=== PATIENT | male | born 1935 | race Two or more races ===

== ENCOUNTER 2017-04-22 16:32 | Inpatient (IN) | payer MEDICARE, OTHER ==
[~2017-04-22] VITALS: Ht 157.5 cm; Wt 123.1 kg
[~2017-04-22 16:32] MED LIST: AMIO200T2 PO; ASPI-535 PO; CLOP75TA27 PO; ERGO500014 PO; ISOS60TA PO; OLME1TAB35 PO; PATA; SIMV40TA3 PO
[2017-04-22] MEDS ORDERED: KETOROLAC 30 MG INJ IM STA (17:45)
--- NOTE | 2017-04-22 18:01 | ERD ---
ER Documentation Chief Complaint Date/Time DATE: 04/22/17 TIME: 17:57 Chief Complaint BILATERAL LEG SWELLING HPI 81-year-old man brought in by EMS from home for complaints of bilateral lower extremity swelling and bilateral knee pain. Patient has a long history of similar symptoms and did not use analgesics for today's pain. He was transported here without any complications. Patient states he has had bilateral lower extremity swelling in the past similar to this episode and uses furosemide daily. He has a history of CABG with a vein harvest from the right lower extremity. Patient denies shortness of breath or chest pain, no complaints of claudication, no headache or blurry vision, no vomiting or diarrhea. Patient denies redness or swelling at the knees and denies recent falls or trauma. ROS All systems reviewed and are negative except as per history of present illness. Medications Home Meds Reported Medications Fusxhjqwma-Glppkxxamz-BANY (Tribenzor) 40-10-12.5 Mg Tablet, 1 TAB PO DAILY, TAB 05/07/15 Olopatadine* (Patanol* Ophth) 0.1 % - 5 Ml Drops, 1 DROP, EA 05/07/15 Aspirin Ec (Aspir 81) 81 Mg Tablet.dr, 81 MG PO DAILY, TAB 05/07/15 Simvastatin (Simvastatin) 40 Mg Tablet, 40 MG PO HS, TAB 05/07/15 Amiodarone Hcl* (Amiodarone Hcl*) 200 Mg Tablet, 200 MG PO DAILY, TAB 05/07/15 Clopidogrel Bisulfate (Clopidogrel) 75 Mg Tablet, 75 MG PO DAILY, TAB 05/07/15 Isosorbide Mononitrate* (Isosorbide Mononitrate*) 60 Mg Tab.er.24h, 60 MG PO DAILY, TAB 05/07/15 Ergocalciferol* (Drisdol* (Vitamin D2)) 50,000 Unit Capsule, 57761 UNIT PO Q7D, CAP 05/07/15 Allergies Allergies: Coded Allergies: No Known Allergy (Verified , 06/12/15) PMhx/Soc Hypertension, CABG, CAD, obesity, peripheral edema, CHF, bilateral knee arthroplasty History of Surgery: Yes (pacer,CABG, both knee surg) Anesthesia Reaction: No Hx Neurological Disorder: Yes (SUDDEN WEAKNESS AT HOME) Hx Respiratory Disorders: No Hx Cardiac Disorders: No (HTN, CABG, CAD, PACER , AFIB) Hx Psychiatric Problems: No Hx Miscellaneous Medical Probl: Yes (EPITAXIS) Hx Alcohol Use: No Hx Substance Use: No Hx Tobacco Use: No FmHx Family History: No diabetes Physical Exam Vitals Vital Signs Date Time Temp Pulse Resp B/P Pulse Ox O2 Delivery O2 Flow Rate FiO2 04/22/17 19:41 98.3 65 18 142/82 96 Room Air 04/22/17 19:21 60 18 142/71 95 Room Air 04/22/17 16:34 98.1 87 18 150/75 95 Physical Exam GENERAL: Obese body habitus, appears dyspneic, appears nontoxic, afebrile HEENT: Moist mucous membranes, pink conjunctiva, no cervical spine tenderness or step-off deformities, no goiter, no jaundice or icterus, extraocular movements intact without pain. No submandibular induration, and no pharyngeal erythema NEURO: Alert and oriented 3, cranial nerves II through XII intact bilaterally, pupils equal round reactive to light, no focal deficits or facial asymmetry, sensation intact distally Strength 5/5 in upper and lower extremities bilaterally CARDIAC: Regular rate and rhythm, no murmurs rubs or gallops LUNGS: Bilateral crackles no wheezing or stridor ABDOMEN: Soft nontender, no guarding, no rigidity, no rebound, no psoas sign no obturator sign. Normoactive bowel sounds SKIN: Warm and dry to touch, no abrasions, contusions, or hematomas, no lacerations, no ecchymosis, no target lesions, and without ulcers EXTREMITIES: 3+ pitting edema in the lower extremities bilaterally, calves bilaterally symmetrical, no Homans sign, no popliteal cord sign PSYCH: Normal affect without agitation or irritability Result Diagram: 04/22/17192004/22/171920 Results 24 hrs Laboratory Tests Test 04/22/17 19:21 04/22/17 19:46 White Blood Count 14.410^3/ul Red Blood Count 4.7610^6/ul Hemoglobin 12.9g/dl Hematocrit 41.8% Mean Corpuscular Volume 87.8fl Mean Corpuscular Hemoglobin 27.1pg Mean Corpuscular Hemoglobin Concent 30.9g/dl Red Cell Distribution Width 16.3% Platelet Count 63900^3/UL Mean Platelet Volume 10.3fl Neutrophils % 75.1% Lymphocytes % 16.4% Monocytes % 6.7% Eosinophils % 1.0% Basophils % 0.2% Nucleated Red Blood Cells % 0.0/100WBC Neutrophils # 10.810^3/ul Lymphocytes # 2.410^3/ul Monocytes # 1.010^3/ul Eosinophils # 0.110^3/ul Basophils # 0.010^3/ul Nucleated Red Blood Cells # 0.010^3/ul Sodium Level 139mmol/L Potassium Level 4.5mmol/L Chloride Level 99mmol/L Carbon Dioxide Level 30mmol/L Anion Gap 15 Blood Urea Nitrogen 39mg/dl Creatinine 1.86mg/dl Glucose Level 94mg/dl Calcium Level 9.0mg/dl Total Bilirubin 0.3mg/dl Direct Bilirubin 0.00mg/dl Indirect Bilirubin 0.3mg/dl Aspartate Amino Transf (AST/SGOT) 20IU/L Alanine Aminotransferase (ALT/SGPT) 27IU/L Alkaline Phosphatase 90IU/L Troponin I 0.014ng/ml Total Protein 8.2g/dl Albumin 4.6g/dl Globulin 3.60g/dl Albumin/Globulin Ratio 1.27 Lipase 203U/L Blood Gas Specimen Source Blood arterial Arterial Blood Date Drawn 04/22/2017 7:57:31 PM Arterial Blood pH (Temp corrected) 7.436 Arterial Blood pCO2 (Temp correct) 45.2mmhg Arterial Blood pO2 (Temp corrected) 68.5mmHG Arterial Blood HCO3 29.7mmol/L Arterial Blood Base Excess 4.8mmol/L Arterial Blood Oxygen Saturation 93.2mmHG Neri Test ACCEPTAB Arterial Blood Gas Puncture Site Right Radial Arterial Blood Carboxyhemoglobin 0.1% Arterial Blood Methemoglobin 0.2% Blood Gas A-a O2 Differential 27.1mmHg Oxyhemoglobin Percent 92.9% Total Hemoglobin 13.7g/dl Blood Gas Temperature 37.0C Blood Gas Modality ROOM AIR FiO2 21.0% Blood Gas Notified Whom AA Blood Gas Notified Time 04/22/2017 8:10:18 PM Current Medications Medications (Trade) Dose Ordered Sig/Stephan Route PRN Reason Start Time Stop Time Status Last Admin Dose Admin Ketorolac Tromethamine (Toradol) 30 mg ONCE STAT IM 04/22/17 17:45 04/22/17 17:46 DC 04/22/17 19:32 Aspirin (Aspirin) 324 mg ONCE ONCE PO 04/22/17 19:00 04/22/17 19:01 DC 04/22/17 19:31 Furosemide (Lasix) 60 mg ONCE ONCE IV 04/22/17 19:00 04/22/17 19:01 DC 04/22/17 19:32 Nitroglycerin 1 tab 1 tab ONCE ONCE SL 04/22/17 19:00 04/22/17 19:01 DC 04/22/17 19:32 Levofloxacin/ Dextrose (Levaquin 750 Mg/ D5W 150 ml (Pmx)) 150 ml @ 100 mls/hr ONCE ONCE IVPB 04/22/17 20:30 04/22/17 21:59 Procedures/MDM Color Doppler ultrasound of the bilateral lower extremities was performed, all veins compressible, no DVT noted. One AP view of the chest performed, read by me reveals sternotomy wires, pacemaker in the right chest, florid pulmonary edema bilaterally worse on the left compared to the right. No acute infiltrates. I administered Toradol 30 mg intramuscular injection for pain control. Patient appears dyspneic and his oxygen saturation ranges between 89 and 94%. I placed him on low-flow oxygen and administered furosemide 60 mg IV 1, as well as aspirin 324 mg p.o. for cardioprotective measures. He also received nitroglycerin 0.4 mg sublingual 1. EKG performed, read by me revealed a normal sinus rhythm at 60 bpm with a first- degree atrial ventricular block at 222 ms, normal axis, narrow QRS complex, no concerning ST elevations or depressions noted. CBC reveals a leukocytosis of 14, electrolytes reveal kidney injury with a BUN/ creatinine of 39/1.9, liver function tests normal, troponin negative. ABG performed, read by me reveals a pH of 7.44, PCO2 45, PO2 70 on room air. Normal. Critical Care: Time: 37 minutes, this was time separate from other billable procedures. Treatments/Evaluations: Close monitoring and treatment of unstable vital signs, cardiorespiratory, and neurologic status, while maintaining tight balance of fluid, respiratory, and cardiac interventions. Patient admitted to telemetry setting for continued medical management and diuresis Departure Diagnosis: Primary Impression: Peripheral edema Additional Impressions: CHF (congestive heart failure) Congestive heart failure type: systolic Congestive heart failure chronicity: acute Qualified Code: I50.21 - Acute systolic congestive heart failure Acute kidney injury Condition: ILSA Hernandez MD Apr 22, 2017 18:00
[2017-04-22] MEDS ORDERED: ASPIRIN 81 MG TAB PO ONE (19:00)
[2017-04-22] MEDS ORDERED: FUROSEMIDE 40 MG INJ IV ONE (19:00)
[2017-04-22] MEDS ORDERED: NITROGLYCERIN (SL) 0.4 MG TAB SL ONE (19:00)
--- NOTE | 2017-04-22 19:28 | RADRPT ---
PROCEDURE: Portable chest x-ray. CLINICAL INDICATION: Cough. TECHNIQUE: Portable AP view of the chest. COMPARISON: 05/06/2015. FINDINGS: There is vascular congestion, not significantly changed. Increased hazy opacification is noted in th e left lower lung. The patient is status post median sternotomy. The cardiac silhouette is magnifie d. There is a right chest cardiac pacemaker. There are aortic calcifications. No definite pleural e ffusion is seen. There is no pneumothorax. IMPRESSION: 1. Vascular congestion, not significantly changed. 2. Increased hazy opacity in the left lower lung, possibly representing pneumonia or asymmetric pul monary edema. 3. Aortic atherosclerosis. 4. Cardiac pacemaker. RPTAT: HTAR .Lorne Gr MD, MD Date Time Electronically viewed and signed by .Lorne Gr MD, on 04/22/2017 19:27 .R/
[2017-04-22 19:45] LABS: BASOPHILS % 0.2 % (0.0-2.0); EOSINOPHILS # 0.1 10^3/ul (0.0-0.5); HEMATOCRIT 41.8 % (42.0-52.0); HEMOGLOBIN 12.9 g/dl (14.0-18.0); LYMPHOCYTES # 2.4 10^3/ul (0.8-2.9); LYMPHOCYTES % 16.4 % (15.0-51.0); MEAN CORPUSCULAR HEMOGLOBIN 27.1 pg (29.0-33.0); MEAN CORPUSCULAR HGB CONC 30.9 g/dl (32.0-37.0); MEAN CORPUSCULAR VOLUME 87.8 fl (82.0-101.0); MEAN PLATELET VOLUME 10.3 fl (7.4-10.4); MONOCYTES % 6.7 % (0.0-11.0); NEUTROPHIL # 10.8 10^3/ul (1.6-7.5); NEUTROPHILS % 75.1 % (39.0-77.0); PLATELET COUNT 255 10^3/UL (140-415); RED BLOOD COUNT 4.76 10^6/ul (4.70-6.10); RED CELL DISTRIBUTION WIDTH 16.3 % (11.5-14.5); WHITE BLOOD COUNT 14.4 10^3/ul (4.8-10.8)
[2017-04-22 19:58] LABS: ALBUMIN 4.6 g/dl (3.3-4.9); ALBUMIN/GLOBULIN RATIO 1.27; BILIRUBIN,INDIRECT 0.3 mg/dl (0-1.1); BILIRUBIN,TOTAL 0.3 mg/dl (0.2-1.3); CREATININE 1.86 mg/dl (0.61-1.24); POTASSIUM 4.5 mmol/L (3.5-5.1); TOTAL PROTEIN 8.2 g/dl (6.1-8.1)
[2017-04-22 20:10] LABS: TROPONIN-I 0.014 ng/ml (0.00-0.12)
[2017-04-22 20:10] LABS: AADO2 Arterial 27.1 mmHg (7.0-24.0); Allen Test ACCEPTAB; Arterial Base Excess 4.8 mmol/L (-3.0-3); Arterial COHb 0.1 % (0.0-3.0); Arterial Fraction of Oxyhgb 92.9 % (93.0-99.0); Arterial HCO3 29.7 mmol/L (22.0-26.0); Arterial MetHb 0.2 % (0.0-1.5); Arterial Total Hemglobin 13.7 g/dl (12.0-18.0); MODE ROOM AIR
[2017-04-22] MEDS ORDERED: LEVOFLOXACIN 750MG/D5W (PMX) 150 ML IVPB ONE (20:30)
[2017-04-22 21:15] VITALS: TEMP 98.3
[2017-04-22 21:50] VITALS: PULSE 63
[2017-04-22 21:55] VITALS: BP 130/58; RESP 20
[2017-04-22 22:10] VITALS: PULSE 60
[2017-04-22] MEDS ORDERED: KETOROLAC 15 MG INJ IV PRN (22:30)
[2017-04-22] MEDS: ACETAMINOPHEN 325 MG TAB PO PRN (22:51)
[2017-04-22] MEDS ORDERED: ONDANSETRON 4 MG INJ IV PRN (23:00)
[2017-04-22] MEDS ORDERED: ZOLPIDEM 5 MG TAB PO PRN (23:00)
[2017-04-22 23:15] VITALS: Ht 157.5 cm; Wt 123.1 kg
[2017-04-22] MEDS: ENOXAPARIN 30 MG/0.3 ML SYG SC SCH (23:30)
[2017-04-22] MEDS: CHOLECALCIFEROL XX SCH (23:45)
[2017-04-23] VITALS (12 sets, daily range): BP systolic 118–163; BP diastolic 49–78; PULSE 60–77; RESP 16–20
[2017-04-23] MEDS ORDERED: FUROSEMIDE 40 MG INJ IV SCH ×2 (06:00→18:00)
[2017-04-23 07:20] LABS: BASOPHILS % 0.4 % (0.0-2.0); EOSINOPHILS # 0.1 10^3/ul (0.0-0.5); EOSINOPHILS % 1.3 % (0.0-7.0); HEMOGLOBIN 12.9 g/dl (14.0-18.0); LYMPHOCYTES # 1.7 10^3/ul (0.8-2.9); LYMPHOCYTES % 16.6 % (15.0-51.0); MEAN CORPUSCULAR HEMOGLOBIN 27.3 pg (29.0-33.0); MEAN CORPUSCULAR HGB CONC 31.5 g/dl (32.0-37.0); MEAN CORPUSCULAR VOLUME 86.9 fl (82.0-101.0); MEAN PLATELET VOLUME 10.1 fl (7.4-10.4); MONOCYTE # 0.7 10^3/ul (0.3-0.9); MONOCYTES % 6.7 % (0.0-11.0); NEUTROPHIL # 7.7 10^3/ul (1.6-7.5); NEUTROPHILS % 74.2 % (39.0-77.0); PLATELET COUNT 233 10^3/UL (140-415); RED BLOOD COUNT 4.72 10^6/ul (4.70-6.10); RED CELL DISTRIBUTION WIDTH 15.9 % (11.5-14.5); WHITE BLOOD COUNT 10.3 10^3/ul (4.8-10.8)
[2017-04-23 07:42] LABS: ALBUMIN 4.1 g/dl (3.3-4.9); ALBUMIN/GLOBULIN RATIO 1.24; BILIRUBIN,INDIRECT 0.4 mg/dl (0-1.1); BILIRUBIN,TOTAL 0.4 mg/dl (0.2-1.3); CALCIUM 8.9 mg/dl (8.4-10.2); CREATININE 1.53 mg/dl (0.61-1.24); MAGNESIUM 2.2 mg/dl (1.7-2.5); PHOSPHORUS 4.5 mg/dl (2.5-4.9); POTASSIUM 3.9 mmol/L (3.5-5.1); TOTAL PROTEIN 7.4 g/dl (6.1-8.1)
[2017-04-23] MEDS: CHOLECALCIFEROL XX SCH (07:45)
[2017-04-23 07:50] LABS: TROPONIN-I 0.021 ng/ml (0.00-0.12)
[2017-04-23 07:51] LABS: CK-MB 2.99 ng/ml (0.0-2.4)
[2017-04-23] MEDS: ENOXAPARIN 30 MG/0.3 ML SYG SC SCH (08:45)
[2017-04-23] MEDS ORDERED: AMIODARONE 200 MG TAB PO SCH (09:00)
[2017-04-23] MEDS ORDERED: ISOSORBIDE MONONITRATE(SR)60 MG TAB PO SCH (09:00)
[2017-04-23] MEDS ORDERED: AMLODIPINE 5 MG TAB PO SCH (09:00)
[2017-04-23] MEDS ORDERED: ASPIRIN (EC) 81 MG TAB PO SCH (09:00)
[2017-04-23] MEDS ORDERED: LOSARTAN 25 MG TAB PO SCH (09:00)
[2017-04-23] MEDS ORDERED: CLOPIDOGREL 75 MG TAB PO SCH (09:00)
[2017-04-23] MEDS: ACETAMINOPHEN 325 MG TAB PO PRN (10:06)
--- NOTE | 2017-04-23 11:10 | HP ---
Date/Time of Note Date/Time of Note DATE: 04/23/17 TIME: 10:41 Assessment/Plan VTE Prophylaxis VTE Prophylaxis Intervention: LMWH Lines/Catheters IV [facility]from [facility] Saline Lock Urinary Cath still in place: Yes Reason Cath still needed: other (indicate) (Monitor urine output, to be discontinued today) Assessment/Plan Assessment/Plan 81-year-old male with; 1. CHF exacerbation, per previous echocardiogram diastolic dysfunction mainly, repeat echocardiogram pending. Cardiac enzymes negative. EKG stable. Patient diuresed well with Lasix overnight. He will be discharged later this afternoon on Lasix 40 mg daily on top of his other medications. He also may benefit from Aldactone if his blood pressure tolerates. D/C Josue catheter Patient ambulating with walker on room air and stable. 2. Coronary artery disease, status post bypass surgery, continue current medications 3. Hypertension: Blood pressure stable on current medications. 4. Morbid obesity: Lifestyle modification 5. Chronic knee pain: Status post knee replacement, Tylenol as needed. 6. Lower extremity edema, right greater than left, Dopplers of the lower extremity negative, diuresis. His right lower extremity seems to be the area where the graft was taken for his CABG and therefore likely has some venous insufficiency and lymphedema chronically. 7. Hyperlipidemia: Continue statin therapy 8. Likely chronic kidney disease, renal function better, diuresis outpatient. Prophylaxis: Lovenox for DVT prophylaxis, patient tolerating p.o. well Disposition: Echocardiogram pending this morning, discharge planning later this afternoon. 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 Echocardiogram is pending this morning, patient diuresed really well with multiple doses of IV Lasix, Josue catheter will be discontinued. He wants to go home today therefore he will be given an additional dose of Lasix later today and discharged on oral Lasix daily for better compliance. Reviewing his medication 1 of his BP medication does contain hydrochlorothiazide in small dose likely not enough for him to diuresis. Patient feels much better and at baseline this morning. He is ambulating with his walker. ROS Constitutional: no complaints Respiratory: no complaints Cardiovascular: no complaints Gastrointestinal: no complaints Genitourinary: no complaints Musculoskeletal: no complaints, swelling (Lower extremity LLE>RLE) Neurologic: no complaints PMH/Family/Social Past Medical History Hypertension Coronary artery disease status post bypass surgery Likely sick sinus syndrome status post permanent pacemaker Morbid obesity Chronic knee pain Chronic lower extremity edema Hyperlipidemia Past Surgical History Status post knee replacements remotely Status post coronary artery bypass surgery Status post pacemaker placement Social History Alcohol Use: none Smoking Status: Never smoker Drug Use: none Exam/Review of Systems Vital Signs Vitals Vital Signs Date Time Temp Pulse Resp B/P Pulse Ox O2 Delivery O2 Flow Rate FiO2 04/23/17 08:09 60 04/23/17 07:47 98.2 18 163/74 93 04/22/17 21:15 Room Air Intake and Output 04/22/17 04/22/17 04/23/17 15:00 23:00 07:00 Intake Total 300 ml Output Total 1600 ml Balance -1300 ml Exam Constitutional: alert, oriented, other (Morbidly obese) Respiratory: diminished breath sounds (At bases bilaterally, unchanged more related to he is a significant obesity), normal air movement Cardiovascular: nl pulses, regular rate and rhythm Gastrointestinal: non-tender, other (Obese with significant pannus), soft Musculoskeletal: nl extremities to inspection Extremities: normal pulses 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 Current Medications Acetaminophen (Tylenol Tab) 650 mg Q6H PRN PO PAIN AND OR ELEVATED TEMP Last administered on 04/23/17 10:06; Admin Dose 650 MG; Start 04/22/17 at 22:30 Furosemide (Lasix) 40 mg Q8 IV Last administered on 04/23/17 05:39; Admin Dose 40 MG; Start 04/23/17 at 06:00 Ketorolac Tromethamine (Toradol) 15 mg Q8 PRN IV PAIN; Start 04/22/17 at 22:30 ; Stop 04/24/17 at 22:29 Ondansetron HCl (Zofran Inj) 4 mg Q6H PRN IV NAUSEA AND/OR VOMITING; Start at 23:00 Zolpidem Tartrate (Ambien) 5 mg HS PRN PO INSOMNIA Last administered on 23:23; Admin Dose 5 MG; Start 04/22/17 at 23:00 Enoxaparin Sodium (Lovenox) 30 mg DAILY SC Last administered on 04/23/17 08:45 ; Admin Dose 30 MG; Start 04/22/17 at 23:30 Amlodipine Besylate (Norvasc) 5 mg DAILY PO Last administered on 04/23/17 08: 48; Admin Dose 5 MG; Start 04/23/17 at 09:00 Losartan Potassium (Cozaar) 25 mg BID PO Last administered on 04/23/17 08:47; Admin Dose 25 MG; Start 04/23/17 at 09:00 Amiodarone HCl (Cordarone) 200 mg DAILY PO Last administered on 04/23/17 08:47 ; Admin Dose 200 MG; Start 04/23/17 at 09:00 Aspirin (Halfprin) 81 mg DAILY PO Last administered on 04/23/17 08:46; Admin Dose 81 MG; Start 04/23/17 at 09:00 Clopidogrel Bisulfate (plaVIX) 75 mg DAILY PO Last administered on 04/23/17 08 :46; Admin Dose 75 MG; Start 04/23/17 at 09:00 Ergocalciferol (Drisdol) 50,000 unit Q7D PO ; Start 04/24/17 at 09:00 Isosorbide Mononitrate (Imdur) 60 mg DAILY PO Last administered on 04/23/17 08 :47; Admin Dose 60 MG; Start 04/23/17 at 09:00 Atorvastatin Calcium (Lipitor) 20 mg DAILY@21 PO ; Start 04/23/17 at 21:00 Procedures Procedures PROCEDURE: Portable chest x-ray. CLINICAL INDICATION: Cough. TECHNIQUE: Portable AP view of the chest. COMPARISON: 05/06/2015. FINDINGS: There is vascular congestion, not significantly changed. Increased hazy opacification is noted in the left lower lung. The patient is status post median sternotomy. The cardiac silhouette is magnified. There is a right chest cardiac pacemaker. There are aortic calcifications. No definite pleural effusion is seen. There is no pneumothorax. IMPRESSION: 1. Vascular congestion, not significantly changed. 2. Increased hazy opacity in the left lower lung, possibly representing pneumonia or asymmetric pulmonary edema. 3. Aortic atherosclerosis. 4. Cardiac pacemaker. RPTAT: HTAR .Lorne Gr MD, MD Date Time Electronically viewed and signed by .Lorne Gr MD, MD on 04/22/2017 19:27 DEISY TOSCANO Apr 23, 2017 10:55
--- NOTE | 2017-04-23 11:17 | PDOCDIS ---
Discharge Instructions CONDITION Patient Condition: Stable HOME CARE INSTRUCTIONS: Diet Instructions: 2gm Na ACTIVITY: Activity Restrictions: Slowly Increase Activity FOLLOW UP/APPOINTMENTS Follow-up Plan Follow-up with primary care physician within 1 week, patient needs his renal function monitored while on diuretics Follow-up with outpatient cardiology within 1-2 weeks. DEISY TOSCANO Apr 23, 2017 11:17
[2017-04-23] MEDS ORDERED: SPIR25TA PO (11:19)
[2017-04-23] MEDS ORDERED: LEVO750T25 PO (11:19)
[2017-04-23] MEDS ORDERED: FURO40TA4 PO (11:19)
[2017-04-23] MEDS ORDERED: SPIRONOLACTONE 25 MG TAB PO SCH (11:30)
[2017-04-23] MEDS ORDERED: LEVOFLOXACIN 750 MG TABLET PO SCH (11:30)
--- NOTE | 2017-04-23 14:50 | RADRPT ---
PROCEDURE: Ultrasound of the bilateral lower extremity venous system. CLINICAL INDICATION: Bilateral leg pain and swelling, deep venous thrombosis TECHNIQUE: Daugherty scale with and without compression, color doppler, spectral doppler of the venous system of the bilateral lower extremities was performed. Venous augmentation maneuvers were utilized . COMPARISON: No prior studies are available for comparison. FINDINGS: RIGHT: Common femoral vein: Patent. Femoral vein: Patent. Popliteal vein: Patent. Calf veins: Patent. Subcutaneous edema is present distally. LEFT: Common femoral vein: Patent. Femoral vein: Patent. Popliteal vein: Patent. Calf veins: Patent. Subcutaneous edema is present distally. IMPRESSION: No evidence of a deep vein thrombosis within the bilateral lower extremities. RPTAT: AADD .Nicolas Castle MD, MD Date Time Electronically viewed and signed by .Nicolas Castle MD, on 04/23/2017 14:50 .B/
--- NOTE | 2017-04-23 16:55 | RADRPT ---
Echocardiogram Report Patient Name: ZHEN LOPEZ Gender: Male Date: 1935 Study Date: 23-Apr-2017 [employer] Apprentice Mechanic: [facility] Location: 5562 Ref. Physician: DELFINO TOSCANO Quality: Technically Difficult Study Procedures: Transthoracic echocardiogram with complete 2D, M-Mode, and doppler examination. Indications: Congestive Heart Failure. 2D/M Mode Doppler Measurement Value Normal Ranges Measurement Value Normal Ranges AoR Diam MM 3.3 cm AV Mean PG 17.3 mmHg LA Dimen MM 5.2 cm AV Peak Dominic 2.9 m/sec LVIDd 2D 4.6 3.5 - 5.6 cm AV Peak PG 32.9 mmHg LVIDs 2D 2.3 2.1 - 4.1 cm AV VTI 57.4 cm LVPWd 2D 1.2 0.6 - 1.1 cm AI Peak PG 55.8 mmHg IVSd 2D 2.1 0.6 - 1.1 cm AI Peak Dominic 3.7 m/sec AoR Diam 2D 3.7 2.0 - 3.7 cm AI PHT 534.4 msec LA Dimen 2D 4.4 2.3 - 4.0 cm LVOT Mean Dominic 0.9 m/sec LVOT Mean PG 3.6 mmHg LVOT Peak Dominic 1.3 m/sec LVOT VTI 29.9 cm MV E Peak Dominic 0.7 m/sec MV A Peak Dominic 1.0 m/sec MV E/A 0.7 MV Decel Time 332 msec MV Decel Denali 2 MV E/A 0.7 TR Peak Dominic 2.6 m/sec TR Peak PG 33.7 mmHg RVSP 42.0 mmHg Findings Left Ventricle: Normal left ventricular systolic function. Normal left ventricular cavity size. Severe asymmetric septal hypertrophy. Ejection fraction is visually estimated at 65 %. Abnormal Diastolic Function. Right Ventricle: Normal right ventricular size. Normal right ventricular systolic function. Left Atrium: There is mild enlargement of left atrium. Right Atrium: The right atrium is normal in size. Mitral Valve: Mitral valve leaflets appear mildly thickened. Mild mitral annular calcification. Trace mitral regurgitation. Systolic anterior motion of mitral valve chordae seen. Aortic Valve: Mild aortic stenosis. Aortic valve Max velocity 2.87 m/sec. Max PG 32.90 mmHg. Mean PG 17.30 mmHg. Aortic cusps appear mildly calcified. Trace aortic valve regurgitation. Tricuspid Valve: Normal appearance of the tricuspid valve. Estimated peak PA systolic pressure 42 mmHg. There is mild tricuspid regurgitation. Pulmonic Valve: Pulmonic valve not well visualized. Pericardium: Normal pericardium with no significant pericardial effusion. Aorta: Normal aortic root. IVC: The IVC is not well visualized. Pulmonary Artery: Not well visualized. Conclusions Normal left ventricular systolic function. Normal left ventricular cavity size. Severe asymmetric septal hypertrophy. Ejection fraction is visually estimated at 65 %. Abnormal Diastolic Function. Normal right ventricular size. Normal right ventricular systolic function. There is mild enlargement of left atrium. The right atrium is normal in size. Trace mitral regurgitation. Systolic anterior motion of mitral valve chordae seen. Mild aortic stenosis. Trace aortic valve regurgitation. Estimated peak PA systolic pressure 42 mmHg. There is mild tricuspid regurgitation. Normal pericardium with no significant pericardial effusion. Electronically Signed By: Harjeet Higginbotham 23-Apr-2017 16:54:54 -0700 Patient Name: ZHEN LOPEZ Study Date: 23-Apr-2017 [id number]
--- NOTE | 2017-04-23 19:30 | RADRPT ---
Vent Rate: 62 bpm RR Interval: 0 msec GA Interval: 212 msec QRS Duration: 104 msec QT Interval: 474 msec QTC Interval: 481 msec P-R-T [place]: 74 - 47 - 86 degrees Electronic atrial pacemaker Nonspecific ST abnormality Prolonged QT Abnormal ECG Electronically Signed By: Chema Luis [id number]
[2017-04-23] MEDS ORDERED: LEVOFLOXACIN 500 MG TAB PO SCH (21:00)
[2017-04-23] MEDS ORDERED: ATORVASTATIN 20 MG TAB PO SCH (21:00)
[2017-04-24] MEDS ORDERED: ERGOCALCIFEROL 50,000 UNIT CAP PO SCH (09:00)
== END 2017-04-23 18:50 | disposition home or self-care (01) | DRG 291 ==
LOC: E/R 16:32 → MS4 20:13
PROVIDERS: ADMIT Internal Medicine; ATTEND Internal Medicine
DX: I13.0 Hypertensive heart and chronic kidney disease with heart failure and stage 1 through stage 4 chronic kidney disease, or unspecified chronic kidney disease (principal); I50.33 Acute on chronic diastolic (congestive) heart failure; N17.9 Acute kidney failure, unspecified; Z68.42 Body mass index [BMI] 45.0-49.9, adult; Z95.5 Presence of coronary angioplasty implant and graft; M25.562 Pain in left knee; I25.10 Atherosclerotic heart disease of native coronary artery without angina pectoris; M25.561 Pain in right knee; G89.29 Other chronic pain; R60.0 Localized edema; E78.5 Hyperlipidemia, unspecified; E66.01 Morbid (severe) obesity due to excess calories; N18.9 Chronic kidney disease, unspecified; Z95.0 Presence of cardiac pacemaker
CPT/HCPCS: 36415; 36600; 71010; 80053; 82550; 82553; 82803; 83690; 83735; 84100; 84484; 85025; 87040; 93005; 93306; 93970; 96372; 96374; 96375; J1650; J1885; J1940; J1956

== ENCOUNTER 2017-04-27 06:35 | Inpatient (IN) | payer MEDICARE, OTHER ==
[~2017-04-27] VITALS: Ht 152.4 cm; Wt 119.0 kg
[~2017-04-27 06:35] MED LIST changes: +FURO40TA4 PO; +LEVO750T25 PO; +SPIR25TA PO
--- NOTE | 2017-04-27 07:45 | RADRPT ---
PROCEDURE: XR Chest. CLINICAL INDICATION: Dyspnea TECHNIQUE: Single frontal chest x-ray. COMPARISON: 04/22/2017 FINDINGS: No acute infiltrate, pleural effusion or pneumothorax is identified. There is stable mild cardiomeg gui and mild pulmonary vascular congestion. The patient is status post sternotomy and right-sided d ual lead pacemaker placement. Aortic atherosclerotic calcification is noted. The osseous structure s are unremarkable. IMPRESSION: 1. Stable mild cardiomegaly and mild pulmonary vascular congestion. 2. Aortic atherosclerosis. 3. No evidence of focal acute infiltrate. RPTAT: QQ .Mark Staley MD, MD Date Time Electronically viewed and signed by .Mark Staley MD, on 04/27/2017 07:44 .R/
[2017-04-27] MEDS ORDERED: ONDANSETRON 4 MG INJ IV STA (07:51)
--- NOTE | 2017-04-27 07:59 | RADRPT ---
PROCEDURE: CT head without intravenous contrast CLINICAL INDICATION: Possible Stroke. COMPARISON: CT 02/07/2016. TECHNIQUE: Axial CT images from skull base to vertex with coronal and sagittal reformats. DOSE: The estimated administered radiation dose was CTDI vol = 45 mGy. DLP = 720 mGy-cm. One or mor e of the following dose reduction techniques were used: automated exposure control, adjustment of th e mA and/or kV according to patient size, or use of iterative reconstruction. FINDINGS: Parenchyma: No acute hemorrhage, large territorial infarction, or mass. 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 Moderate amount of periventricular and subcortical white dayna er hypodensity, a nonspecific finding often associated with chronic microangiopathy. Ventricles: Mild generalized volume with proportionate ex vacuo ventricular dilation. Extra-axial spaces: No herniation or midline shift. Paranasal sinuses: Clear. Mastoids and middle ears: Right mastoid effusion. Visualized orbits: Normal. Vessels: Marked calcified atherosclerotic arterial plaque. Bones: Normal. Extracranial soft tissues: Normal. Additional comment: None. IMPRESSION: 1. No acute hemorrhage or large territorial infarction. 2. Chronic senescent findings characterized by volume loss, old lacunar infarctions, and white matte r changes. 3. Right mastoid effusion. RPTAT: PP Physician Danisha Date Time Electronically viewed and signed by Physician Danisha on 04/27/2017 07:58 /
[2017-04-27 08:01] LABS: BASOPHILS % 0.3 % (0.0-2.0); EOSINOPHILS # 0.2 10^3/ul (0.0-0.5); EOSINOPHILS % 1.9 % (0.0-7.0); HEMATOCRIT 37.8 % (42.0-52.0); LYMPHOCYTES # 1.7 10^3/ul (0.8-2.9); LYMPHOCYTES % 17.6 % (15.0-51.0); MEAN CORPUSCULAR HEMOGLOBIN 27.9 pg (29.0-33.0); MEAN CORPUSCULAR HGB CONC 31.7 g/dl (32.0-37.0); MEAN CORPUSCULAR VOLUME 87.9 fl (82.0-101.0); MEAN PLATELET VOLUME 10.3 fl (7.4-10.4); MONOCYTE # 0.6 10^3/ul (0.3-0.9); MONOCYTES % 6.5 % (0.0-11.0); NEUTROPHILS % 72.9 % (39.0-77.0); PLATELET COUNT 230 10^3/UL (140-415); RED CELL DISTRIBUTION WIDTH 16.7 % (11.5-14.5); WHITE BLOOD COUNT 9.8 10^3/ul (4.8-10.8)
[2017-04-27 08:23] LABS: INR 0.99; PARTIAL THROMBOPLASTIN TIME 25.5 Sec (25.0-35.0); PROTIME 13.1 Sec (12.2-14.2)
[2017-04-27 08:38] LABS: CALCIUM 8.7 mg/dl (8.4-10.2); CREATININE 2.05 mg/dl (0.61-1.24); POTASSIUM 4.4 mmol/L (3.5-5.1)
[2017-04-27 08:50] LABS: TROPONIN-I 0.015 ng/ml (0.00-0.12)
[2017-04-27 09:49] LABS: ADD UMIC NO; UR ASCORBIC ACID 20 mg/dL (NEGATIVE); UR BILIRUBIN (Dip) NEGATIVE (NEGATIVE); UR BLOOD (Dip) NEGATIVE (NEGATIVE); UR CLARITY CLEAR (CLEAR); UR COLOR YELLOW (YELLOW); UR GLUCOSE (Dip) NEGATIVE (NEGATIVE); UR KETONES (Dip) NEGATIVE (NEGATIVE); UR LEUKOCYTE ESTERASE (Dip) NEGATIVE Leu/ul (NEGATIVE); UR NITRITE (Dip) NEGATIVE (NEGATIVE); UR SPECIFIC GRAVITY (Dip) 1.016 (1.003-1.030); UR TOTAL PROTEIN (Dip) NEGATIVE (NEGATIVE); UR UROBILINOGEN (Dip) NEGATIVE (NEGATIVE)
[2017-04-27] MEDS ORDERED: ASPIRIN 325 MG TAB PO ONE (10:00)
[2017-04-27] MEDS ORDERED: ONDANSETRON 4 MG INJ IV PRN ×2 (10:00→14:30)
[2017-04-27] MEDS ORDERED: ACETAMINOPHEN 325 MG TAB PO PRN ×2 (10:00→14:30)
[2017-04-27 10:13] LABS: OPIATES Negative (NEGATIVE)
[2017-04-27 10:18] LABS: BARBITURATES Negative (NEGATIVE); BENZODIAZEPINES Negative (NEGATIVE); CANNABINOIDS Negative (NEGATIVE); COCAINE Negative (NEGATIVE)
[2017-04-27 12:30] VITALS: TEMP 98.1
--- NOTE | 2017-04-27 12:55 | ERA ---
ER Documentation Chief Complaint Date/Time DATE: 04/27/17 TIME: 12:52 Chief Complaint C/O WEAKNESS AND GENERALIZED BODY PAIN X 2 DAYS HPI Patient is an 81-year-old male with hypertension who presents with a "cannot walk". He feels weak all over. He has dizziness. Uses a walker. He was brought in by ambulance. The symptoms started yesterday but got worse. He said that he could not even get up to go to the bathroom. He denies fevers. The patient feels like he has slurred speech as well. ROS All systems reviewed and are negative except as per history of present illness. Medications Home Meds Active Scripts Furosemide* (Furosemide*) 40 Mg Tablet, 40 MG PO DAILY for 30 Days, TAB Prov:DEISY DAWSON 04/23/17 Spironolactone* (Aldactone*) 25 Mg Tablet, 25 MG PO DAILY for 30 Days, TAB Prov:DEISY DAWSON 04/23/17 Levofloxacin* (Levaquin*) 750 Mg Tablet, 750 MG PO Q48H for 4 Days, TAB to start 04/24 and for total of 4 days (2 doses) Prov:DORCASRainaAmarilisKUSUM Guerra 04/23/17 Reported Medications Ggteowuutj-Lswgheirix-UXUN (Tribenzor) 40-10-12.5 Mg Tablet, 1 TAB PO DAILY, TAB 05/07/15 Olopatadine* (Patanol* Ophth) 0.1 % - 5 Ml Drops, 1 DROP, EA 05/07/15 Aspirin Ec (Aspir 81) 81 Mg Tablet.dr, 81 MG PO DAILY, TAB 05/07/15 Simvastatin (Simvastatin) 40 Mg Tablet, 40 MG PO HS, TAB 05/07/15 Amiodarone Hcl* (Amiodarone Hcl*) 200 Mg Tablet, 200 MG PO DAILY, TAB 05/07/15 Clopidogrel Bisulfate (Clopidogrel) 75 Mg Tablet, 75 MG PO DAILY, TAB 05/07/15 Isosorbide Mononitrate* (Isosorbide Mononitrate*) 60 Mg Tab.er.24h, 60 MG PO DAILY, TAB 05/07/15 Ergocalciferol* (Drisdol* (Vitamin D2)) 50,000 Unit Capsule, 73207 UNIT PO Q7D, CAP 05/07/15 Allergies Allergies: Coded Allergies: No Known Allergy (Verified , 06/12/15) PMhx/Soc History of Surgery: Yes (CABG,LADI KNEE SX) Anesthesia Reaction: No Hx Neurological Disorder: No Hx Respiratory Disorders: No Hx Cardiac Disorders: Yes (CABG,WITH PACEMAKER) Hx Psychiatric Problems: Yes Hx Miscellaneous Medical Probl: Yes (MORBID OBESITY) Hx Alcohol Use: No Hx Substance Use: No Hx Tobacco Use: No Smoking Status: Never smoker FmHx Family History: No diabetes Physical Exam Vitals Vital Signs Date Time Temp Pulse Resp B/P Pulse Ox O2 Delivery O2 Flow Rate FiO2 04/27/17 12:30 98.1 60 19 114/61 99 Nasal Cannula 3.0 04/27/17 09:24 69 18 132/61 Nasal Cannula 2.0 04/27/17 07:20 98.1 81 18 115/87 92 04/27/17 07:20 Nasal Cannula Physical Exam Const: No acute distress Head: Atraumatic Eyes: Normal Conjunctiva ENT: Normal External Ears, Nose and Mouth. Neck: Full range of motion..~ No meningismus. Resp: Clear to auscultation bilaterally Cardio: Regular rate and rhythm, no murmurs Abd: Soft, non tender, non distended. Normal bowel sounds Skin: No petechiae or rashes Back: No midline or flank tenderness Ext: No cyanosis, or edema Neur: Awake and alert, weakness of the upper and lower extremities bilaterally, patient reports slurred speech, cranial nerves II through XII are intact Psych: Normal Mood and Affect Result Diagram: 04/27/17 0730 04/27/17 0730 Results 24 hrs Laboratory Tests Test 04/27/17 07:30 04/27/17 09:15 White Blood Count 9.810^3/ul Red Blood Count 4.3010^6/ul Hemoglobin 12.0g/dl Hematocrit 37.8% Mean Corpuscular Volume 87.9fl Mean Corpuscular Hemoglobin 27.9pg Mean Corpuscular Hemoglobin Concent 31.7g/dl Red Cell Distribution Width 16.7% Platelet Count 47123^3/UL Mean Platelet Volume 10.3fl Neutrophils % 72.9% Lymphocytes % 17.6% Monocytes % 6.5% Eosinophils % 1.9% Basophils % 0.3% Nucleated Red Blood Cells % 0.0/100WBC Neutrophils # (Manual) 710^3/ul Lymphocytes # 1.710^3/ul Monocytes # 0.610^3/ul Eosinophils # 0.210^3/ul Basophils # 0.010^3/ul Nucleated Red Blood Cells # 0.010^3/ul Prothrombin Time 13.1Sec Prothrombin Time Ratio 1.0 INR International Normalized Ratio 0.99 Activated Partial Thromboplast Time 25.5Sec Sodium Level 139mmol/L Potassium Level 4.4mmol/L Chloride Level 102mmol/L Carbon Dioxide Level 26mmol/L Anion Gap 15 Blood Urea Nitrogen 50mg/dl Creatinine 2.05mg/dl Glucose Level 105mg/dl Hemoglobin A1c 6.1% Calcium Level 8.7mg/dl Troponin I 0.015ng/ml Urine Color YELLOW Urine Clarity CLEAR Urine pH 6.0 Urine Specific [place] 1.016 Urine Ketones NEGATIVEmg/dL Urine Nitrite NEGATIVEmg/dL Urine Bilirubin NEGATIVEmg/dL Urine Urobilinogen NEGATIVEmg/dL Urine Leukocyte Esterase NEGATIVELeu/ul Urine Hemoglobin NEGATIVEmg/dL Urine Glucose NEGATIVEmg/dL Urine Total Protein NEGATIVEmg/dl Urine Opiates Screen Negative Urine Barbiturates Negative Urine Amphetamines Screen Negative Urine Benzodiazepines Screen Negative Urine Cocaine Screen Negative Urine Cannabinoids Negative Current Medications Medications (Trade) Dose Ordered Sig/Stephan Route PRN Reason Start Time Stop Time Status Last Admin Dose Admin Ondansetron HCl (Zofran Inj) 4 mg ONCE STAT IV 04/27/17 07:51 04/27/17 07:52 DC 04/27/17 07:59 Aspirin (Aspirin) 325 mg ONCE ONCE PO 04/27/17 10:00 04/27/17 10:01 DC 04/27/17 12:36 Ondansetron HCl (Zofran Inj) 4 mg ER BRIDGE PRN IV NAUSEA AND/OR VOMITING 04/27/17 10:00 04/28/17 09:59 Acetaminophen (Tylenol Tab) 650 mg ER BRIDGE PRN PO MILD PAIN/FEVER 04/27/17 10:00 04/28/17 09:59 Procedures/MDM EKG read by me: Rate/Rhythm: First-degree AV block at a rate of 60 Intervals: First-degree block Impression: First-degree AV block without ischemia CT brain shows no intracranial hemorrhage or mass per radiology. Chest x-ray shows no pneumonia per radiology. Patient is a 81-year-old male who presents with acute weakness and reports of slurred speech. I am concerned about acute stroke. The patient had a full stroke workup and is outside the window for TPA. The patient will be admitted to Dr. Dawson to a telemetry bed as the patient has Medicare regal ACO. The patient was given aspirin after he passed a swallow evaluation. The patient will need further workup for stroke. The patient also has acute renal failure with a creatinine that is greater than 2. Departure Diagnosis: Primary Impression: Acute ischemic stroke Additional Impression: Acute renal failure Qualified Code: N17.9 - Acute renal failure, unspecified acute renal failure type Condition: TARSHA Velarde MD Apr 27, 2017 12:54
[2017-04-27] MEDS ORDERED: NASO17 NASAL (13:49)
[2017-04-27] MEDS ORDERED: FURO40TA4 PO (13:54)
[2017-04-27] MEDS ORDERED: CLON-379 PO (13:55)
[2017-04-27] MEDS ORDERED: MIRA50TA PO (13:56)
[2017-04-27] MEDS ORDERED: DICL100G37 TOP (13:57)
[2017-04-27] MEDS ORDERED: OLOP2.5D BOTH EYES (13:57)
[2017-04-27] MEDS ORDERED: ICOS1CAP PO (13:58)
[2017-04-27] MEDS ORDERED: ALEN70TA30 PO (13:58)
[2017-04-27] MEDS ORDERED: CLOT24CR4 TOP (13:59)
[2017-04-27] MEDS ORDERED: DICLOFENAC SODIUM 1% GEL 100 GM TUBE TP PRN (14:00)
[2017-04-27] MEDS ORDERED: ALBU18HF INHALATION (14:09)
[2017-04-27] MEDS ORDERED: POTA8CAP PO (14:10)
[2017-04-27] MEDS ORDERED: IBUP-1542 PO (14:10)
[2017-04-27] MEDS ORDERED: MAGNESIUM HYDROXIDE 30ML CUP PO PRN (14:30)
[2017-04-27] MEDS ORDERED: NACL 0.9% 3 ML SYG IV SCH (14:30)
[2017-04-27] MEDS ORDERED: BISACODYL 10 MG SUPP PR PRN (14:30)
[2017-04-27] MEDS ORDERED: HYDROCODONE/APAP (5/325) TAB PO PRN ×2 (14:30)
[2017-04-27] MEDS ORDERED: DOCUSATE SODIUM 100 MG CAP PO PRN (14:30)
--- NOTE | 2017-04-27 15:08 | HP ---
Date/Time of Note Date/Time of Note DATE: 04/27/17 TIME: 15:07 Assessment/Plan VTE Prophylaxis VTE Prophylaxis Intervention: LMWH Lines/Catheters Central line still needed: No Assessment/Plan Assessment/Plan 81-year-old male with: 1. Weakness, lower extremity greater than upper extremities, bilaterally, patient does have chronic gait issues he does use a walker at baseline, he is also morbidly obese. Currently improved weakness, but patient reports that his lower extremities are still very weak. CAT scan of the head stable, patient does have a pacemaker therefore he cannot get MRI studies. He also has a chronic kidney disease with a creatinine up to 2.0 therefore we cannot give him contrast studies he does have a history of acute CVA, will the monitor him overnight, CAT scan of the head can be repeated in the next 24-48 hours is any further concerns. Continue antiplatelets, current blood pressure medications, statin and other medical management PT eval If patient still having trouble ambulating by a.m., he agrees to go to correction facility if recommended for physical therapy. 2. Chronic diastolic dysfunction, congestive heart failure. Currently euvolemic, continue current diuretics and other current medications. 3. Arrhythmia, possible history of sick sinus syndrome, patient status post pacemaker. Stable. Continue current medications. 4. Coronary artery disease, status post bypass surgery, continue current medications 5. Hypertension: Blood pressure stable on current medications. 6. Morbid obesity: Lifestyle modification 7. Chronic knee pain: Status post knee replacement, Tylenol as needed. 8. Lower extremity edema, right greater than left, Dopplers of the lower extremity negative on last admission, patient currently euvolemic on current diuretics. Continue current medications. 7. Hyperlipidemia: Continue statin therapy 8. Likely chronic kidney disease, renal function stable, continue current diuretics. Prophylaxis: Lovenox for DVT prophylaxis, patient tolerating p.o. well Disposition: Admit to telemetry observation, physical therapy evaluation in a.m. , discharge planning in the next 24-48 hours patient may need to go to a correction facility for physical therapy. HPI/ROS Admit Date/Time Admit Date/Time Apr 27, 2017 at 09:50 Hx of Present Illness Chief complaint: Bilateral lower extremity weakness History of presenting illness: 81-year-old male, with history of coronary artery disease, arrhythmia status post pacemaker, hypertension, morbid obesity, previous CVA who presented to the emergency department with complaints of severe weakness, bilateral lower extremity more pronounced to a point where he was unable to walk this morning. Patient reports that at baseline and it is verified on his previous admission, he uses a walker and does have some weakness on the lower extremity. However this morning he had severe weakness to a point where he could not walk. He reports that his legs were giving out. He also does have chronic knee pain. He denies any unilateral weakness, he does report bilateral upper extremities weakness along with the lower extremity but the upper extremities much improved now. He denies any chest pain, nausea, vomiting, dyspnea on exertion, orthopnea , paroxysmal nocturnal dyspnea. He does not use supplemental oxygen at home. He denies any urinary complaints. Given his previous history of CVA, patient is admitted to telemetry observation for rule out TIA. He has a pacemaker therefore were unable to do MRIs. CAT scan of the head and were unremarkable, will order carotid Dopplers to complete the workup. ROS Constitutional: no complaints Eyes: no complaints ENT: no complaints Respiratory: no complaints Cardiovascular: no complaints Gastrointestinal: no complaints Musculoskeletal: no complaints Skin: no complaints Neurologic: other (Bilateral Lower extremity weakness ) Psychological: no complaints PMH/Family/Social Past Medical History Hypertension Coronary artery disease status post bypass surgery Likely sick sinus syndrome status post permanent pacemaker Morbid obesity Chronic knee pain Chronic lower extremity edema Hyperlipidemia Past Surgical History Status post knee replacements remotely Status post coronary artery bypass surgery Status post pacemaker placement Social History Alcohol Use: none Smoking Status: Never smoker Drug Use: none Exam/Review of Systems Vital Signs Vitals Vital Signs Date Time Temp Pulse Resp B/P Pulse Ox O2 Delivery O2 Flow Rate FiO2 04/27/17 14:37 81 18 121/71 Nasal Cannula 3.0 04/27/17 12:30 98.1 99 Exam Constitutional: alert, oriented, other (Morbidly obese), well developed Respiratory: clear to auscultation, normal air movement Cardiovascular: nl pulses, other (A paced), regular rate and rhythm Gastrointestinal: non-tender, soft Musculoskeletal: nl extremities to inspection Extremities: normal pulses, other (No edema, clubbing or cyanosis) Neurological: TUBING OILER II-XII intact, nl mental status, nl speech, other ( Generalized weakness lower extremity) Labs Result Diagram: 04/27/17 0730 04/27/17 0730 Medications Medications Current Medications Amiodarone HCl (Cordarone) 200 mg DAILY PO ; Start 04/28/17 at 09:00; Status UNV Aspirin (Halfprin) 81 mg DAILY PO ; Start 04/28/17 at 09:00; Status UNV Clonidine (Catapres) 0.1 mg DAILY PRN PO ELEVATED BLOOD PRESSURE; Start at 14:00 Clopidogrel Bisulfate (plaVIX) 75 mg DAILY PO ; Start 04/28/17 at 09:00; Status UNV Clotrimazole (Lotrimin Cr) 1 applic DAILY TOP ; Start 04/28/17 at 09:00; Status UNV Diclofenac Sodium (Voltaren 1% Gel) 2 gm DAILY PRN TP PAIN; Start 04/27/17 at 14:00 Ergocalciferol (Drisdol) 50,000 unit Q7D PO ; Start 04/27/17 at 14:00; Status UNV Furosemide (Lasix) 40 mg DAILY PO ; Start 04/28/17 at 09:00 Isosorbide Mononitrate (Imdur) 60 mg DAILY PO ; Start 04/28/17 at 09:00; Status UNV Olopatadine HCl (Patanol 0.1% Oph) 1 drop DAILY BOTH EYES ; Start 04/28/17 at 09 :00; Status UNV Spironolactone (Aldactone) 25 mg DAILY PO ; Start 04/28/17 at 09:00; Status UNV Miscellaneous Information 1 gm DAILY PO ; Start 04/28/17 at 09:00; Status UNV Miscellaneous Information 50 mg DAILY PO ; Start 04/28/17 at 09:00; Status UNV Miscellaneous Information 1 spray DAILY NASAL ; Start 04/28/17 at 09:00; Status UNV Miscellaneous Information 1 tab DAILY PO ; Start 04/28/17 at 09:00; Status UNV Miscellaneous Information 1 drop DAILY BOTH EYES ; Start 04/28/17 at 09:00; Status UNV Miscellaneous Information 40 mg HS PO ; Start 04/27/17 at 21:00; Status UNV Ondansetron HCl (Zofran Inj) 4 mg Q6H PRN IV NAUSEA AND/OR VOMITING; Start at 14:30 Acetaminophen (Tylenol Tab) 650 mg Q6H PRN PO PAIN LEVEL 1-3 OR FEVER; Start at 14:30 Acetaminophen/ Hydrocodone Bitart ([place] (5/325)) 1 tab Q6H PRN PO PAIN LEVEL 4 -6; Start 04/27/17 at 14:30 Acetaminophen/ Hydrocodone Bitart ([place] (5/325)) 2 tab Q6H PRN PO PAIN LEVEL 7 -10; Start 04/27/17 at 14:30 Docusate Sodium (Colace) 100 mg Q12H PRN PO CONSTIPATION; Start 04/27/17 at 14: 30 Magnesium Hydroxide (Milk Of Mag) 30 ml DAILY PRN PO CONSTIPATION; Start at 14:30 Bisacodyl (Dulcolax Supp) 10 mg DAILY PRN IN CONSTIPATION; Start 04/27/17 at 14 :30 Famotidine (Pepcid) 20 mg Q12 PO ; Start 04/27/17 at 21:00; Status UNV Enoxaparin Sodium (Lovenox) 40 mg DAILY SC ; Start 04/28/17 at 09:00; Status UNV Procedures Procedures PROCEDURE: CT head without intravenous contrast CLINICAL INDICATION: Possible Stroke. COMPARISON: CT 02/07/2016. TECHNIQUE: Axial CT images from skull base to vertex with coronal and sagittal reformats. DOSE: The estimated administered radiation dose was CTDI vol = 45 mGy. DLP = 720 mGy-cm. One or more of the following dose reduction techniques were used: automated exposure control, adjustment of the mA and/or kV according to patient size, or use of iterative reconstruction. FINDINGS: Parenchyma: No acute hemorrhage, large territorial infarction, or mass. Old lacunar infarct within the right caudate body extending to the posterior limb internal capsule and external capsule; left caudate head; and left external capsule. Moderate amount of periventricular and subcortical white matter hypodensity, a nonspecific finding often associated with chronic microangiopathy. Ventricles: Mild generalized volume with proportionate ex vacuo ventricular dilation. Extra-axial spaces: No herniation or midline shift. Paranasal sinuses: Clear. Mastoids and middle ears: Right mastoid effusion. Visualized orbits: Normal. Vessels: Marked calcified atherosclerotic arterial plaque. Bones: Normal. Extracranial soft tissues: Normal. Additional comment: None. IMPRESSION: 1. No acute hemorrhage or large territorial infarction. 2. Chronic senescent findings characterized by volume loss, old lacunar infarctions, and white matter changes. 3. Right mastoid effusion. RPTAT: PP Physician Danisha Date Time Electronically viewed and signed by Prabhu Meraz Physician on 04/27/2017 07: 58 PROCEDURE: XR Chest. CLINICAL INDICATION: Dyspnea TECHNIQUE: Single frontal chest x-ray. COMPARISON: 04/22/2017 FINDINGS: No acute infiltrate, pleural effusion or pneumothorax is identified. There is stable mild cardiomegaly and mild pulmonary vascular congestion. The patient is status post sternotomy and right-sided dual lead pacemaker placement. Aortic atherosclerotic calcification is noted. The osseous structures are unremarkable. IMPRESSION: 1. Stable mild cardiomegaly and mild pulmonary vascular congestion. 2. Aortic atherosclerosis. 3. No evidence of focal acute infiltrate. RPTAT: QQ .Mark Staley MD, MD Date Time Electronically viewed and signed by .Mark Staley MD, on 04/27/2017 07: 44 DEISY TOSCANO Apr 27, 2017 15:08
[2017-04-27 15:20] VITALS: Ht 152.4 cm; Wt 119.0 kg
[2017-04-27 15:35] VITALS: BP 124/70; RESP 18
[2017-04-27] MEDS: [UNRECOGNIZED DRUG - REMARK] XX SCH (16:00)
[2017-04-27] MEDS: [UNRECOGNIZED DRUG - OTHER] XX SCH (16:00)
[2017-04-27] MEDS: (Mirabegron (Myrbetriq) 50 MG: PLEASE ASK FAMILY TO BRING IN XX SCH (16:00)
[2017-04-27 16:33] VITALS: PULSE 75
--- NOTE | 2017-04-27 17:30 | RADRPT ---
PROCEDURE: US Carotids. CLINICAL INDICATION: Dizziness TECHNIQUE: Multiple sonographic of the carotid arteries were obtained utilizing taylor scale imaging . Color and Doppler imaging was performed. The images were reviewed on a PACS workstation. COMPARISON: 05/07/2015 FINDINGS: Location Right CCA 75 cm/sec Prox ICA 76 cm/sec Mid ICA 88 cm/sec Dist ICA 95 cm/sec ECA 90 cm/sec ICA/CCA 1.4 The exam is limited by patient cooperation. The left carotid and vertebral systems were not evaluat ed. Antegrade flow is seen within the right vertebral artery. Mild to moderate scattered plaque is present throughout the right carotid system without evidence of focal hemodynamically significant s tenosis. IMPRESSION: Limited exam secondary to patient cooperation. The left carotid system and left vertebr al artery were not evaluated. 1. Mild to moderate scattered atherosclerotic plaque throughout the right carotid system without maciej dence of focal hemodynamically significant stenosis - validated velocity measurements with angiograp hic measurements, velocity criteria are extrapolated from diameter data as defined by the Society of Radiologists in Ultrasound Consensus Conference Radiology 2003; 229;340-346. This study does indir ectly reference the measurement of the distal ICA diameter as the denominator for stenosis measureme nt. 2. Antegrade flow seen within the right vertebral artery. SRU Consensus Conference Criteria for the Diagnosis of Carotid Artery Stenosis Degree of Stenosis, % ICA PSV, cm/sec Plaque Estimate, % ICA/CCA PSV Ratio Normal <125 None <2.0 <50 <125 <50 <2.0 50 69 125-230 >50 2.0-4.0 >70 but less than near occlusion >230 >50 <4.0 Near occlusion High, low, or undetectable Visible Variable Total occlusion Undetectable Visible, no detectable lumen Not applicable *Cartoid artery stenosis: taylor-scale and Doppler US diagnosis. Society of Radiologists in Ultrasound Consensus Conference. Radiology 2003; 229: 340-346 RPTAT: JJ .Ac Cates MD, Date Time Electronically viewed and signed by .Ac Cates MD, MD on 04/27/2017 17:30 .A/
[2017-04-27 18:10] LABS: CREATINE KINASE 75 IU/L (23-200)
[2017-04-27 18:21] LABS: CK-MB 4.58 ng/ml (0.0-2.4); TROPONIN-I < 0.012 ng/ml (0.00-0.12)
[2017-04-27 20:10] VITALS: BP 121/58; RESP 16
[2017-04-27 20:11] VITALS: PULSE 60
[2017-04-27] MEDS: FAMOTIDINE 20 MG TAB PO SCH (20:12)
[2017-04-27] MEDS: ATORVASTATIN 20 MG TAB PO SCH (20:12)
[2017-04-27] MEDS ORDERED: ZOLPIDEM 5 MG TAB PO PRN (21:30)
[2017-04-27] MEDS: ALPRAZOLAM 0.25 MG TAB PO PRN (21:42)
[2017-04-28] VITALS (14 sets, daily range): BP systolic 113–128; BP diastolic 52–58; PULSE 59–63; RESP 17–19
[2017-04-28] MEDS: [UNRECOGNIZED DRUG - REMARK] XX SCH ×3 (08:00→16:00)
[2017-04-28] MEDS: (Mirabegron (Myrbetriq) 50 MG: PLEASE ASK FAMILY TO BRING IN XX SCH ×3 (08:00→16:00)
[2017-04-28] MEDS: [UNRECOGNIZED DRUG - OTHER] XX SCH ×3 (08:00→16:00)
[2017-04-28 09:00] LABS: BASOPHILS % 0.3 % (0.0-2.0); EOSINOPHILS # 0.2 10^3/ul (0.0-0.5); EOSINOPHILS % 1.5 % (0.0-7.0); HEMATOCRIT 38.8 % (42.0-52.0); HEMOGLOBIN 12.1 g/dl (14.0-18.0); LYMPHOCYTES # 1.8 10^3/ul (0.8-2.9); LYMPHOCYTES % 17.8 % (15.0-51.0); MEAN CORPUSCULAR HGB CONC 31.2 g/dl (32.0-37.0); MEAN CORPUSCULAR VOLUME 89.8 fl (82.0-101.0); MEAN PLATELET VOLUME 10.5 fl (7.4-10.4); MONOCYTE # 0.6 10^3/ul (0.3-0.9); MONOCYTES % 6.5 % (0.0-11.0); NEUTROPHILS % 73.2 % (39.0-77.0); PLATELET COUNT 203 10^3/UL (140-415); RED BLOOD COUNT 4.32 10^6/ul (4.70-6.10); WHITE BLOOD COUNT 9.9 10^3/ul (4.8-10.8)
[2017-04-28] MEDS: CLOTRIMAZOLE 1% 30 GM CR TOP SCH (09:00)
[2017-04-28] MEDS ORDERED: NON-FORMULARY/PATIENT OWN MED (Icosapent Ethyl (Vascepa) 1 GM) PO SCH (09:00)
[2017-04-28] MEDS ORDERED: ERGOCALCIFEROL 50,000 UNIT CAP PO SCH ×2 (09:00)
[2017-04-28] MEDS ORDERED: OLOPATADINE BOTH EYES SCH (09:00)
[2017-04-28] MEDS ORDERED: NON-FORMULARY/PATIENT OWN MED (Mirabegron (Myrbetriq) 50 MG) PO SCH (09:00)
[2017-04-28 09:13] LABS: ALBUMIN 3.7 g/dl (3.3-4.9); ALBUMIN/GLOBULIN RATIO 1.15; BILIRUBIN,INDIRECT 0.3 mg/dl (0-1.1); BILIRUBIN,TOTAL 0.3 mg/dl (0.2-1.3); CALCIUM 8.9 mg/dl (8.4-10.2); CREATININE 1.51 mg/dl (0.61-1.24); MAGNESIUM 2.5 mg/dl (1.7-2.5); POTASSIUM 4.6 mmol/L (3.5-5.1); TOTAL PROTEIN 6.9 g/dl (6.1-8.1)
[2017-04-28] MEDS: HYDROCHLOROTHIAZIDE 12.5 MG CAP PO SCH ×2 (09:18→09:37)
[2017-04-28] MEDS: ASPIRIN (EC) 81 MG TAB PO SCH (09:18)
[2017-04-28] MEDS: OLOPATADINE 0.1% 5 ML OPH BOTH EYES SCH (09:18)
[2017-04-28] MEDS: CLOPIDOGREL 75 MG TAB PO SCH (09:18)
[2017-04-28] MEDS: AMLODIPINE 10 MG TAB PO SCH (09:19)
[2017-04-28] MEDS: AMIODARONE 200 MG TAB PO SCH (09:20)
[2017-04-28] MEDS: FLUTICASONE 0.05% 16 GM NAS SPRAY NASAL SCH (09:36)
[2017-04-28] MEDS: FUROSEMIDE 40 MG TAB PO SCH (09:38)
[2017-04-28] MEDS: SPIRONOLACTONE 25 MG TAB PO SCH (09:38)
[2017-04-28] MEDS: LOSARTAN 50 MG TAB PO SCH (09:38)
[2017-04-28] MEDS: ISOSORBIDE MONONITRATE(SR)60 MG TAB PO SCH (09:40)
[2017-04-28] MEDS: ENOXAPARIN 40 MG/0.4 ML SYG SC SCH (09:45)
--- NOTE | 2017-04-28 13:01 | PDOCDIS ---
Discharge Instructions DIAGNOSIS Discharge Diagnosis Fall Lower extremity weakness CONDITION Patient Condition: Good HOME CARE INSTRUCTIONS: Diet Instructions: Low Fat /CholesterolSpecial Diet: cardiac diet ACTIVITY: Activity Restrictions: Slowly Increase Activity Bathing Restrictions: Shower FOLLOW UP/APPOINTMENTS Follow-up Plan 1. Follow-up with Dr. Worthington on Sunday. 2. Resume home PT for gait training. JIMBO HEALY MD Apr 28, 2017 13:01
--- NOTE | 2017-04-28 14:10 | DS ---
DATE OF ADMISSION: 04/27/2017 DATE OF DISCHARGE: 04/30/2017 FINAL DIAGNOSES: 1. Fall and weakness in lower extremities: Improving. The patient stated that he was walking at home and had a fall. His could not get him up, as well as the caregiver so they called 911. He had a physical therapy evaluation and he was able to ambulate approximately 30 feet with a front wheel walker. His gait is better and will continue outpatient physical therapy at home. The patient was receiving physical therapy prior to discharge. 2. Congestive heart failure: Stable. The patient has chronic diastolic dysfunction. He is currently euvolemic and will continue on his diuretics and other medications. 3. Arrhythmia, possibly sick sinus syndrome: Stable. This patient has a pacemaker and we will continue his outpatient medications. 4. Coronary artery disease status post bypass surgery: Stable. Continue his cardiovascular medications. 5. Hypertension: Stable. The patient has good control, continue his outpatient medications. 6. Morbid obesity: Needs to improve. The patient has been counseled on diet modification and meal size. He states he will try to comply. 7. Chronic knee pain, status post knee replacement: Stable. The patient takes Tylenol as needed for pain. 8. Lower extremity edema, right greater than left: Stable. The patient had negative lower extremity Dopplers on his admission approximately less than 1 week ago. We will continue his current medications. 9. Hyperlipidemia: Stable. Continue statin therapy. 10. Chronic kidney disease, stage 3: Improved. The patient's creatinine on admission was about 2 and came down to approximately 1.5. He is doing well and tolerating oral diet and medication. HOSPITAL COURSE: The patient is a very pleasant, 81-year-old gentleman with chronic diastolic dysfunction, congestive heart failure, sick sinus syndrome, coronary artery disease, hypertension, morbid obesity, chronic knee pain, who was in his usual state of health after he discharged from the hospital on April 22. The patient was at home and he got up from the bathroom. He started walking, he had a fall. His could not get him up due to his excessive size and 911 was called. The patient was in the emergency department and found to be quite stable, however, after this lengthy discussion between the ER physician, and Dr. Dawson decision was made to admit the patient overnight to observation. Overall overnight, he did very well. He had no arrhythmias. His blood pressure was controlled. He had a physical therapy evaluation and he appeared stable and at baseline. He did still complain of some weakness, however, it is improved. He will continue with outpatient physical therapy as he had prior to coming to the hospital. He did have a CT scan of the brain, which was without contrast, as the patient had elevated creatinine, however, did not show any acute findings. The patient continued with PT and had a repeat CT scan of the brain after 48 hours and there was no acute findings suggestive of stroke. I had a lengthy discussion with the patient and son-in-law at the bedside. I explained to him that physical therapy is vázquez to his improvement. I reassured him that he has no focal deficits on neurologic examination, and his weakness is likely multifactorial. As the patient was still weak, and unsteady on hs feet, he agreed to be placed in a SNF for ongoing PT/OT. A bed was obtained on 04/30/2017 which is the day the patient was transferred. After the SNF stay, he will follow up with Dr. Worthington, his primary care physician who has been caring for the patient in a very close manner. I gave my phone number to the patient's son and asked his primary care physician to contact me should they have any questions, whatsoever, of what transpired during the patient's hospitalization. The patient's son and the patient himself for very pleased at the time of discharge, and all their questions were answered to their satisfaction. DISCHARGE CONDITION: Stable. DISPOSITION: Discharged to SNF for PT/OT. FOLLOWUP: The patient is to follow with after stay in the SNF. DISCHARGE MEDICATIONS: 1. Amiodarone 200 mg once daily. 2. Aspirin 81 mg once daily. 3. Plavix 75 mg once daily. 4. Ergocalciferol 50,000 units every 7 days. 5. Lasix 40 mg once daily. 6. Imdur 60 mg once daily. 7. Patanol 1 drop to both eyes daily. 8. Aldactone 25 mg once daily. 9. Flonase 1 spray each nostril twice daily. 10. Cozaar 100 mg once daily. 11. Norvasc 10 mg once daily. 12. Hydrochlorothiazide 12.5 mg once daily. 13. Ventolin 2 puffs q. 2 hours p.r.n. shortness of breath. Dictated By: Jagdish Bowens MD /[email or web address]/[email or web address] /Document#: [id number] MTDD
[2017-04-28] MEDS: FAMOTIDINE 20 MG TAB PO SCH (20:51)
[2017-04-28] MEDS: ALPRAZOLAM 0.25 MG TAB PO PRN (20:51)
[2017-04-28] MEDS: ATORVASTATIN 20 MG TAB PO SCH (20:51)
[2017-04-29] VITALS (12 sets, daily range): BP systolic 103–141; BP diastolic 42–74; PULSE 60–69; RESP 18–20
[2017-04-29] MEDS: [UNRECOGNIZED DRUG - OTHER] XX SCH ×2 (08:00)
[2017-04-29] MEDS: (Mirabegron (Myrbetriq) 50 MG: PLEASE ASK FAMILY TO BRING IN XX SCH ×2 (08:00)
[2017-04-29] MEDS: [UNRECOGNIZED DRUG - REMARK] XX SCH ×2 (08:00)
[2017-04-29] MEDS: SPIRONOLACTONE 25 MG TAB PO SCH (08:59)
[2017-04-29] MEDS: ISOSORBIDE MONONITRATE(SR)60 MG TAB PO SCH (08:59)
[2017-04-29] MEDS: CLOPIDOGREL 75 MG TAB PO SCH (09:00)
[2017-04-29] MEDS: AMIODARONE 200 MG TAB PO SCH (09:00)
[2017-04-29] MEDS: CLOTRIMAZOLE 1% 30 GM CR TOP SCH (09:00)
[2017-04-29] MEDS: AMLODIPINE 10 MG TAB PO SCH (09:00)
[2017-04-29] MEDS: FUROSEMIDE 40 MG TAB PO SCH (09:01)
[2017-04-29] MEDS: ASPIRIN (EC) 81 MG TAB PO SCH (09:01)
[2017-04-29] MEDS: LOSARTAN 50 MG TAB PO SCH (09:02)
[2017-04-29] MEDS: HYDROCHLOROTHIAZIDE 12.5 MG CAP PO SCH (09:02)
[2017-04-29] MEDS: OLOPATADINE 0.1% 5 ML OPH BOTH EYES SCH (09:29)
[2017-04-29] MEDS: FLUTICASONE 0.05% 16 GM NAS SPRAY NASAL SCH (09:29)
[2017-04-29] MEDS: ENOXAPARIN 40 MG/0.4 ML SYG SC SCH (09:32)
[2017-04-29 10:40] LABS: CALCIUM 9.1 mg/dl (8.4-10.2); CREATININE 1.22 mg/dl (0.61-1.24); POTASSIUM 4.2 mmol/L (3.5-5.1)
--- NOTE | 2017-04-29 11:49 | RADRPT ---
PROCEDURE: CT Brain without contrast. CLINICAL INDICATION: lower extremity weakness; r/o stroke; prior study 48 hrs ago TECHNIQUE: A CT of the brain was performed on a GE [employer] 64-slice CT scanner utilizing axial imaging from the skull base through the vertex without IV contrast. Multiplanar reformatted images were made. Images were reviewed on a PACS workstation. The CTDIvol is 43.38 mGy and the DLP is 720 .23 mGycm. COMPARISON: CT brain 04/27/2017 FINDINGS: There is no acute intracranial hemorrhage, midline shift, or mass effect. No abnormal extra-axial c ollection is identified. The cerebral taylor-white matter differentiation appears preserved. Again seen are chronic lacunar infarcts within the right caudate body extending to the posterior bowser b internal capsule external capsule; left caudate head; and left external capsule, unchanged. There is moderate diffuse cerebral volume loss with frontal parietal predominance, stable compared t o prior study and likely sales representative [place] power of age-related volume loss. Patchy and confluent low attenuation in the periventricular and subcortical cerebral white matter is stable, nonspecific, but suggestive of moderate to severe chronic microvascular ischemic white dayna er change. There is mild diffuse cerebellar volume loss. The cerebellum and brainstem are otherwise grossly un remarkable. The basal cisterns are preserved. There is extensive intracranial calcific atherosclerotic disease involving the bilateral internal ca rotid arteries and vertebral basilar system. The visualized paranasal sinuses are clear. A small right mastoid effusion is demonstrated, unchanged. No acute fracture or suspicious osseous lesion is identified. IMPRESSION: 1. No evidence of acute intracranial pathology. 2. 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 3. Right mastoid effusion, stable. RPTAT: QQ Physician Abbi Date Time Electronically viewed and signed by Physician Abbi on 04/29/2017 11:49 EMILY/
[2017-04-29] MEDS: ATORVASTATIN 20 MG TAB PO SCH (22:30)
[2017-04-29] MEDS: FAMOTIDINE 20 MG TAB PO SCH (22:30)
[2017-04-29] MEDS: ALPRAZOLAM 0.25 MG TAB PO PRN (22:35)
[2017-04-30] VITALS (11 sets, daily range): BP systolic 91–150; BP diastolic 47–77; PULSE 56–72; RESP 16–20
[2017-04-30] MEDS: FUROSEMIDE 40 MG TAB PO SCH (09:32)
[2017-04-30] MEDS: ASPIRIN (EC) 81 MG TAB PO SCH (09:32)
[2017-04-30] MEDS: AMIODARONE 200 MG TAB PO SCH (09:32)
[2017-04-30] MEDS: CLOPIDOGREL 75 MG TAB PO SCH (09:33)
[2017-04-30] MEDS: HYDROCHLOROTHIAZIDE 12.5 MG CAP PO SCH (09:33)
[2017-04-30] MEDS: ISOSORBIDE MONONITRATE(SR)60 MG TAB PO SCH (09:33)
[2017-04-30] MEDS: AMLODIPINE 10 MG TAB PO SCH (09:34)
[2017-04-30] MEDS: LOSARTAN 50 MG TAB PO SCH (09:34)
[2017-04-30] MEDS: SPIRONOLACTONE 25 MG TAB PO SCH (09:44)
[2017-04-30] MEDS: ENOXAPARIN 40 MG/0.4 ML SYG SC SCH (09:53)
[2017-04-30] MEDS: CLOTRIMAZOLE 1% 30 GM CR TOP SCH (09:57)
[2017-04-30] MEDS: FLUTICASONE 0.05% 16 GM NAS SPRAY NASAL SCH (09:58)
[2017-04-30] MEDS: OLOPATADINE 0.1% 5 ML OPH BOTH EYES SCH (09:58)
--- NOTE | 2017-04-30 11:26 | PN ---
Date/Time of Note Date/Time of Note DATE: 04/30/17 TIME: 11:14 Assessment/Plan VTE Prophylaxis VTE Prophylaxis Intervention: LMWH Lines/Catheters IV [facility]from [facility] Urinary Cath still in place: No Assessment/Plan Assessment/Plan 81-year-old male with: 1. Weakness, lower extremity greater than upper extremities, bilaterally, patient does have chronic gait issues he does use a walker at baseline, he is also morbidly obese. Improved weakness, but still needs to go to SNF today for PT, he has been waiting for a SNF bed x 48hrs now CAT scan of the head x 2 stable and Labs have been stable Continue antiplatelets, current blood pressure medications, statin and other medical management. 2. Chronic diastolic dysfunction, congestive heart failure. Currently euvolemic , continue current diuretics and other current medications. 3. Arrhythmia, possible history of sick sinus syndrome, patient status post pacemaker. Stable. Continue current medications. 4. Coronary artery disease, status post bypass surgery, continue current medications 5. Hypertension: Blood pressure stable on current medications. 6. Morbid obesity: Lifestyle modification 7. Chronic knee pain: Status post knee replacement, Tylenol as needed. 8. Lower extremity edema, right greater than left, Dopplers of the lower extremity negative on last admission, patient currently euvolemic on current diuretics. Continue current medications. 7. Hyperlipidemia: Continue statin therapy 8. Likely chronic kidney disease, renal function fluctuates but stable as of yesterday, continue current medications. Prophylaxis: Lovenox for DVT prophylaxis, patient tolerating p.o. well Disposition: awaiting bed at SNF for discharge, all orders in as of 04/28. Subjective 24 Hr Interval Summary Free Text/Dictation Patient doing OK and seems to be around baseline, refusing BP check but still with some weakness Awaiting SNF placement since 04/28 Exam/Review of Systems Vital Signs Vitals Vital Signs Date Time Temp Pulse Resp B/P Pulse Ox O2 Delivery O2 Flow Rate FiO2 04/30/17 08:15 56 04/30/17 07:53 97.6 20 136/63 93 04/27/17 14:37 Nasal Cannula 3.0 Intake and Output 04/29/17 04/29/17 04/30/17 15:00 23:00 07:00 Intake Total 800 ml Output Total 650 ml Balance 150 ml Exam Constitutional: alert, obese (morbid), oriented Respiratory: clear to auscultation, normal air movement Cardiovascular: nl pulses, regular rate and rhythm Gastrointestinal: non-tender, soft Musculoskeletal: nl extremities to inspection, other (no edema ) Extremities: normal pulses, other (no edema, no clubbing or cyanosis ) Neurological: BUILD MANAGER II-XII intact, nl mental status, nl speech, other ( generalised weakness ) Results Result Diagram: 04/28/1723 04/29/17 0932 Medications Medications Current Medications Amiodarone HCl (Cordarone) 200 mg DAILY PO Last administered on 04/30/17 09:32 ; Admin Dose 200 MG; Start 04/28/17 at 09:00 Aspirin (Halfprin) 81 mg DAILY PO Last administered on 04/30/17 09:32; Admin Dose 81 MG; Start 04/28/17 at 09:00 Clonidine (Catapres) 0.1 mg DAILY PRN PO ELEVATED BLOOD PRESSURE; Start at 14:00 Clopidogrel Bisulfate (plaVIX) 75 mg DAILY PO Last administered on 04/30/17 09 :33; Admin Dose 75 MG; Start 04/28/17 at 09:00 Clotrimazole (Lotrimin Cr) 1 applic DAILY TOP Last administered on 04/30/17 09 :57; Admin Dose 1 APPLIC; Start 04/28/17 at 09:00 Diclofenac Sodium (Voltaren 1% Gel) 2 gm DAILY PRN TP PAIN; Start 04/27/17 at 14:00 Ergocalciferol (Drisdol) 50,000 unit Q7D PO ; Start 04/28/17 at 09:00 Furosemide (Lasix) 40 mg DAILY PO Last administered on 04/30/17 09:32; Admin Dose 40 MG; Start 04/28/17 at 09:00 Isosorbide Mononitrate (Imdur) 60 mg DAILY PO Last administered on 04/30/17 09 :33; Admin Dose 60 MG; Start 04/28/17 at 09:00 Olopatadine HCl (Patanol 0.1% Oph) 1 drop DAILY BOTH EYES Last administered on 04/30/17 09:58; Admin Dose 1 DROP; Start 04/28/17 at 09:00 Spironolactone (Aldactone) 25 mg DAILY PO Last administered on 04/30/17 09:44 ; Admin Dose 25 MG; Start 04/28/17 at 09:00 Miscellaneous Information 1 gm DAILY PO ; Start 04/28/17 at 09:00; Status UNV Miscellaneous Information 50 mg DAILY PO ; Start 04/28/17 at 09:00; Status UNV Fluticasone Propionate (Flonase 0.05% Nasal) 2 spray DAILY NASAL Last administered on 04/30/17 09:58; Admin Dose 2 SPRAY; Start 04/28/17 at 09:00 Losartan Potassium (Cozaar) 100 mg DAILY PO Last administered on 04/30/17 09: 34; Admin Dose 100 MG; Start 04/28/17 at 09:00 Atorvastatin Calcium (Lipitor) 20 mg DAILY@21 PO Last administered on 22:30; Admin Dose 20 MG; Start 04/27/17 at 21:00 Ondansetron HCl (Zofran Inj) 4 mg Q6H PRN IV NAUSEA AND/OR VOMITING; Start at 14:30 Acetaminophen (Tylenol Tab) 650 mg Q6H PRN PO PAIN LEVEL 1-3 OR FEVER; Start at 14:30 Acetaminophen/ Hydrocodone Bitart (Venus (5/325)) 1 tab Q6H PRN PO PAIN LEVEL 4 -6; Start 04/27/17 at 14:30 Acetaminophen/ Hydrocodone Bitart (Venus (5/325)) 2 tab Q6H PRN PO PAIN LEVEL 7 -10; Start 04/27/17 at 14:30 Docusate Sodium (Colace) 100 mg Q12H PRN PO CONSTIPATION Last administered on 01:43; Admin Dose 100 MG; Start 04/27/17 at 14:30 Magnesium Hydroxide (Milk Of Mag) 30 ml DAILY PRN PO CONSTIPATION Last administered on 04/30/17 01:43; Admin Dose 30 ML; Start 04/27/17 at 14:30 Bisacodyl (Dulcolax Supp) 10 mg DAILY PRN NE CONSTIPATION Last administered on 04/30/17 01:43; Admin Dose 10 MG; Start 04/27/17 at 14:30 Famotidine (Pepcid) 20 mg Q24H PO Last administered on 04/29/17 22:30; Admin Dose 20 MG; Start 04/27/17 at 21:00 Enoxaparin Sodium (Lovenox) 40 mg DAILY SC Last administered on 04/30/17 09:53 ; Admin Dose 40 MG; Start 04/28/17 at 09:00 Miscellaneous Information (*Order Clarification Bulletin) *Icosapent Ethyl ( Vascepa... Q8H XX ; Start 04/27/17 at 16:00 Miscellaneous Information (*Order Clarification Bulletin) (Mirabegron (Myrbetriq ) 50 MG: PLEASE ... Q8H XX ; Start 04/27/17 at 16:00 Amlodipine Besylate (Norvasc) 10 mg DAILY PO Last administered on 04/30/17 09: 34; Admin Dose 10 MG; Start 04/28/17 at 09:00 Hydrochlorothiazide (Hydrochlorothiazide) 12.5 mg DAILY PO Last administered on 04/30/17 09:33; Admin Dose 12.5 MG; Start 04/28/17 at 09:00 Miscellaneous Information (*Order Clarification Bulletin) *ERGOCALCIFEROL 50, 000 UNIT CAP* WHICH ... Q8H XX ; Start 04/27/17 at 16:00 Alprazolam (Xanax) 0.5 mg Q12H PRN PO ANXIETY Last administered on 04/29/17 22 :35; Admin Dose 0.5 MG; Start 04/27/17 at 21:30 Ergocalciferol (Drisdol) 50,000 unit Sa@09 PO Last administered on 04/28/17 09 :20; Admin Dose 50,000 UNIT; Start 04/28/17 at 09:00 DEISY TOSCANO Apr 30, 2017 11:24
== END 2017-04-30 20:25 | DRG 948 ==
LOC: E/R 06:35 → MS4 09:50 → OBSVTOIN 13:35
PROVIDERS: ADMIT Internal Medicine; ATTEND Internal Medicine
DX: R53.1 Weakness (principal); I13.0 Hypertensive heart and chronic kidney disease with heart failure and stage 1 through stage 4 chronic kidney disease, or unspecified chronic kidney disease; I50.32 Chronic diastolic (congestive) heart failure; N18.3 Chronic kidney disease, stage 3 (moderate); Z68.43 Body mass index [BMI] 50.0-59.9, adult; Z95.1 Presence of aortocoronary bypass graft; E66.01 Morbid (severe) obesity due to excess calories; I25.10 Atherosclerotic heart disease of native coronary artery without angina pectoris; Z79.82 Long term (current) use of aspirin; Z95.0 Presence of cardiac pacemaker; Z96.659 Presence of unspecified artificial knee joint; E78.5 Hyperlipidemia, unspecified; Z86.73 Personal history of transient ischemic attack (TIA), and cerebral infarction without residual deficits; M25.569 Pain in unspecified knee; R26.89 Other abnormalities of gait and mobility; R26.2 Difficulty in walking, not elsewhere classified; G89.29 Other chronic pain; Z91.81 History of falling
CPT/HCPCS: 36415; 70450; 71010; 80048; 80053; 80061; 80307; 81003; 82550; 82553; 83036; 83735; 84439; 84443; 84484; 85025; 85610; 85730; 87081; 92610; 93005; 93880; 96374; 97161; G0378; J1650; J2405